=== PATIENT | female | born 1955 | race Caucasian/White ===

== ENCOUNTER → 2017-09-30 | Outpatient (CLI) | payer MEDICARE | END | disposition home or self-care (01) | LOC: YCFC.O 10:08 | PROVIDERS: ATTEND Nurse Practitioner Family | DX: E78.2 Mixed hyperlipidemia (principal); E11.22 Type 2 diabetes mellitus with diabetic chronic kidney disease; I10 Essential (primary) hypertension ==

== ENCOUNTER → 2019-04-27 | Outpatient (CLI) | payer MEDICARE ==
--- NOTE | 2019-04-27 14:57 | RAD ---
Two-view right shoulder Indication: SHOULDER PAIN Comparison: None. Impression: A.C. and glenohumeral joint alignment normal without acute fracture or dislocation. Minimal osteoarthritis inferior aspects glenohumeral joint. Electronically signed by: Ra Clarke MD 04/27/2019 2:55 PM CDT
--- NOTE | 2019-04-27 14:58 | RAD ---
Study: 3 Views of the Left Foot. Indication: UNSPEC OPEN WOUND, LEFT FOOT, INITIAL ENCOUNTER Comparison: July 18, 2015 Impression: Remote/healed fracture of the left fifth metatarsal shaft. No acute fracture identified. Minimal joint space narrowing first MTP joint and first IP joint. Prior ORIF of a distal tibial fracture with ossification along the distal tibiofibular syndesmosis and possible pseudoarthrosis at this site. Calcaneal spurring at the Achilles tendon insertion and plantar fascia origin. Electronically signed by: Ra Clarke MD 04/27/2019 2:56 PM CDT
== END ==
LOC: YCFC.O 09:23
PROVIDERS: ATTEND Nurse Practitioner Family
DX: Z00.00 Encounter for general adult medical examination without abnormal findings (principal); M19.011 Primary osteoarthritis, right shoulder; S91.302A Unspecified open wound, left foot, initial encounter; M77.32 Calcaneal spur, left foot; M25.872 Other specified joint disorders, left ankle and foot; I10 Essential (primary) hypertension; R73.01 Impaired fasting glucose; Z13.220 Encounter for screening for lipoid disorders; Z87.81 Personal history of (healed) traumatic fracture

== ENCOUNTER → 2019-08-07 | Outpatient (CLI) | payer MEDICARE ==
--- NOTE | 2019-08-09 08:12 | RAD ---
EXAM DESCRIPTION: Chest,2 Views CLINICAL HISTORY: PREOP COMPARISON: Previous chest x-ray June 04, 2015 TECHNIQUE: PA/lateral FINDINGS: Heart is large with normal pulmonary vascularity. The heart appears larger than on previous study. No pleural effusion or pneumothorax. Abnormal density in the medial right lung base consistent with patchy infiltrate or partial volume loss. Prominent epicardial fat pad may be contributing. Wedgelike density along the posterior cardiac margin on the lateral view. Lateral view shows intact sternum and prominent spurring in the mid T-spine. IMPRESSION: Patchy infiltrate or partial volume loss in the medial right lung base. Large heart without congestive failure. Electronically signed by: Milton Gomes MD 08/09/2019 8:10 AM CDT
== END ==
LOC: YCFC.O 10:51
PROVIDERS: ATTEND Nurse Practitioner Family
DX: Z01.818 Encounter for other preprocedural examination (principal); L97.522 Non-pressure chronic ulcer of other part of left foot with fat layer exposed; I51.7 Cardiomegaly

== ENCOUNTER → 2019-12-15 | Outpatient (CLI) | payer MEDICARE ==
--- NOTE | 2019-12-15 20:51 | US ---
EXAM DESCRIPTION: Extremity,Lower LT Arteries: Ultrasound. CLINICAL HISTORY: wound on lower left leg that won't heal COMPARISON: None. TECHNIQUE: Doppler evaluation of the left lower extremity arterial flow waveforms and velocities. FINDINGS: Arterial waveforms in the left lower extremity are all multiphasic.. Comments: Velocities are physiologic from the proximal thigh to the left ankle IMPRESSION: Doppler evaluation of the left lower extremity arterial systems showing no evidence of significant atherosclerotic occlusive disease. Electronically signed by: Maynor Akbar MD 12/15/2019 8:50 PM [employer]
== END ==
LOC: US 10:41
PROVIDERS: ATTEND Internal Medicine
DX: E11.621 Type 2 diabetes mellitus with foot ulcer (principal)

== ENCOUNTER → 2020-03-13 | Outpatient (CLI) | payer OTHER | LOC: YCFC.O 12:12 | PROVIDERS: ATTEND Nurse Practitioner | DX: R11.0 Nausea (principal) ==

== ENCOUNTER → 2020-03-22 | Outpatient (CLI) | payer OTHER | LOC: YCFC.O 16:45 | PROVIDERS: ATTEND Family Medicine | DX: R06.00 Dyspnea, unspecified (principal) ==

== ENCOUNTER → 2020-03-23 | Outpatient (CLI) | payer OTHER ==
--- NOTE | 2020-03-24 16:39 | RAD ---
EXAM DESCRIPTION: Chest,2 Views CLINICAL HISTORY: 64 years Female, COUGH. R05 COMPARISON: 07 August 2019 TECHNIQUE: PA/lateral FINDINGS: Cardiomegaly is evident. Bilateral basilar atelectatic type infiltrate is observed. No pleural fluid is identified. Degenerative changes are seen in the thoracic spine. IMPRESSION: Bilateral basilar atelectatic type infiltrate is observed. Electronically signed by: Delonte Banda MD 03/24/2020 4:38 PM CDT
== END ==
LOC: LAB.O 15:19
PROVIDERS: ATTEND Nurse Practitioner
DX: R91.8 Other nonspecific abnormal finding of lung field (principal); R05 Cough; E78.1 Pure hyperglyceridemia; R74.8 Abnormal levels of other serum enzymes

== ENCOUNTER → 2020-03-27 | Outpatient (CLI) | payer OTHER | LOC: LAB.O 12:19 | PROVIDERS: ATTEND Nurse Practitioner | DX: E87.1 Hypo-osmolality and hyponatremia (principal) ==

== ENCOUNTER → 2020-04-18 | Outpatient (CLI) | payer OTHER ==
--- NOTE | 2020-04-18 10:57 | RAD ---
EXAM DESCRIPTION: Chest,2 Views CLINICAL HISTORY: CHRONIC OBSTRUCTIVE PULMONARY DISEASE WITH EXACERBATION COMPARISON: Previous study March 23, 2020 TECHNIQUE: PA/lateral FINDINGS: Heart is enlarged with centrally prominent pulmonary vascularity. Small right pleural effusion. No pneumothorax. Discoid atelectasis or linear scarring in the lingula and peripheral left lung base. Lungs are otherwise clear with no consolidating infiltrate. Lateral view shows intact sternum and spurring in the T-spine. IMPRESSION: Large heart with mildly increased vascularity. Small right pleural effusion. Electronically signed by: Milton Gomes MD 04/18/2020 10:56 AM CDT
== END ==
LOC: LAB.O 10:19
PROVIDERS: ATTEND Family Medicine
DX: J44.1 Chronic obstructive pulmonary disease with (acute) exacerbation (principal); I51.7 Cardiomegaly; J90 Pleural effusion, not elsewhere classified; R60.0 Localized edema